=== PATIENT | female | born 1960 ===

== ENCOUNTER 2020-10-24 07:47 | Day surgery (SDC) | payer OTHER ==
[~2020-10-24] VITALS: Ht 170.2 cm; Wt 93.0 kg
[~2020-10-24 07:47] MED LIST: ALBU90OI INH; Aspir 8181 MG PO; Chlorothiazide250 MG PO; Estradiol1 MG PO; FLUT1DIS2 INH; Flonase 0.05% N16 GM; NEURONTIN400 MG PO; OXYB5 PO; Prozac40 MG PO; Ranitidine HCl150 M1 PO; TRAZ150T57 PO
[2020-10-24] MEDS ORDERED: Calcium Acetat667 MG (08:05)
== END 2020-10-24 09:45 | disposition home or self-care (01) ==
LOC: ORSCSDS 07:47
PROVIDERS: Student in an Organized Health Care Education/Training Program
PROC: 0DB98ZX Excision of Duodenum, Via Natural or Artificial Opening Endoscopic, Diagnostic (ICD-10-PCS; principal; 2020-10-24 09:00)
PROC: 0DB68ZX Excision of Stomach, Via Natural or Artificial Opening Endoscopic, Diagnostic (ICD-10-PCS; principal; 2020-10-24 09:00)
PROC: 0DB48ZX Excision of Esophagogastric Junction, Via Natural or Artificial Opening Endoscopic, Diagnostic (ICD-10-PCS; principal; 2020-10-24 09:00)
PROC: 0DB58ZX Excision of Esophagus, Via Natural or Artificial Opening Endoscopic, Diagnostic (ICD-10-PCS; principal; 2020-10-24 09:00)
DX: R13.10 Dysphagia, unspecified (principal); K21.9 Gastro-esophageal reflux disease without esophagitis; R12 Heartburn; R11.0 Nausea; J45.909 Unspecified asthma, uncomplicated; F41.8 Other specified anxiety disorders; K22.2 Esophageal obstruction; K29.70 Gastritis, unspecified, without bleeding; Z87.891 Personal history of nicotine dependence; Z79.899 Other long term (current) drug therapy
CPT/HCPCS: 88305; 88342; J2704; J7120